=== PATIENT | female | born 1990 | race African-American/Black ===

== ENCOUNTER 2016-05-03 18:44 | Emergency (ER) | payer SELFPAY ==
--- NOTE | 2016-05-03 19:39 | ED Physician Documentation ---
General Adult - HISTORIAN Historian: patient - HPI Stated Complaint: left sided back pain Chief Complaint: General Adult Additional Information: L flank pain since 1030 today, associated with moving pans and bending over. Pain worse with deep breath, lying on right side. No meds taken po. Using icy hot patch and heat. - ROS CONST: no problems. denies: fever NEURO/PSYCH: denies: tingling, numbness - PAST HX Past History: asthma Surgeries/Procedures: , cholecystectomy, other (kidney stones, broken blood vessel) Allergies/Adverse Reactions: Allergies Allergy/AdvReac Type Severity Reaction Status Date / Time No Known Allergies Allergy Verified 05/03/16 18:59 Home Medications: Ambulatory Orders Medication Instructions Recorded Albuterol Sulfate [Proair Hfa] 8.5 gm IH DAILY 09/04/12 Cyclobenzaprine HCl [Flexeril] 10 mg PO HS #10 tablet 05/03/16 - SOCIAL HX Smoking History: cigar (occasional) - FAMILY HX Family History: No - VITAL SIGNS Vital Signs: Vital Signs Temp Pulse Resp BP Pulse Ox 99 H 16 122/91 98 05/03/16 18:54 05/03/16 18:54 05/03/16 18:54 05/03/16 18:54 - REVIEWED ASSESSMENTS Nursing Assessment Reviewed: Yes Vitals Reviewed: Yes ED Results Lab/Radiology - Orders Orders: ED Orders Category Date Time Status Ketorolac Tromethamine [Toradol] Med 05/03/16 19:37 Once 60 mg IM NOW ONE Orphenadrine Citrate [Norflex] Med 05/03/16 19:37 Once 60 mg IM NOW ONE General Adult Physical Exam - PHYSICAL EXAM GENERAL APPEARANCE: morbidly obese EENT: eye inspection normal, ENT inspection normal NECK: normal inspection, supple RESPIRATORY: no resp distress, breath sounds normal CVS: reg rate & rhythm, heart sounds normal RECTAL: deferred BACK: normal inspection, other (tender to palpation at left posterolateral lower mid thorax ) SKIN: warm/dry, normal color EXTREMITIES: no evidence of injury, no edema NEURO: CN's nml as tested, motor nml, sensation nml, other (reflexes 2+ throughout) Discharge Clincal Impression: Chest wall pain Additional Instructions: Apply heat or cold to the area several times a day. Take two Aleve with a small amount of food every 12 hours for the next seven days. Home Medications: Ambulatory Orders Albuterol Sulfate [Proair Hfa] 8.5 gm IH DAILY 09/04/12 Cyclobenzaprine HCl [Flexeril] 10 mg PO HS #10 tablet 05/03/16 Condition: Good Disposition: 01 HOME, SELF-CARE Decision to Admit: NO Decision Time: 19:45
[2016-05-03] MEDS: KETOROLAC TROMETHAMINE 60 MG/2 ML VIAL IM ONE (19:50)
[2016-05-03] MEDS: ORPHENADRINE CITRATE 60 MG/2ML IM ONE (19:52)
[2016-05-03 21:10] VITALS: BP 134/76
[2016-05-04 05:28] LABS: APPEARANCE,URINE CLOUDY (CLEAR); COLOR,URINE YELLOW (YELLOW); OCCULT BLOOD,URINE NEGATIVE (NEGATIVE); PH URINE 8.5 (5.0 - 8.0)
== END 2016-05-03 20:30 | disposition home or self-care (01) ==
LOC: ED 18:44
DX: R07.89 Other chest pain (principal)
CPT/HCPCS: J1885; J2360; 81002; 96372; 99283

== ENCOUNTER 2018-03-22 18:01 | Emergency (ER) | payer OTHER ==
[2018-03-22 19:01] LABS: BASOPHILS % 0.3 (0.0-1.5); EOSINOPHILS % 1.5 % (0.0-6.8); MEAN CORPUSCULAR HEMOGLOBIN 30.2 pg (28.0-34.0); MONOCYTES % 12.4 % (0.0-11.0); NEUTROPHILS # 3.4 # k/uL (1.4-7.7)
[2018-03-22 19:08] LABS: eGFR (Non-African) > 60
--- NOTE | 2018-03-22 19:19 | ED Physician Documentation ---
General Adult - HISTORIAN Historian: patient, spouse - HPI Stated Complaint: SOA Chief Complaint: General Adult Further Comments: yes (27 year old female patient reports complaint of dyspnea. "I can't get enough air" Patient reports using her inhaler multiple times today. Patient also complains of right upper thigh pain. Patient report difficulty with first "3 blood transfusion, busted blood vessel, low hemoglobin". Patient denies using any anticoagulation injections or oral medication during . LMP - 12/26/17; DANITA 10/02/18) - ROS CONST: no problems EYES/ENT: none CVS/RESP: none GI/: none MS/SKIN/LYMPH: leg pain (right thigh) - PAST HX Past History: asthma Surgeries/Procedures: Allergies/Adverse Reactions: Allergies Allergy/AdvReac Type Severity Reaction Status Date / Time No Known Allergies Allergy Verified 03/22/18 18:12 Home Medications: Ambulatory Orders Medication Instructions Recorded Albuterol Sulfate [Proair Hfa] 8.5 gm IH DAILY 09/04/12 - SOCIAL HX Smoking History: non-smoker - FAMILY HX Family History: No - VITAL SIGNS Vital Signs: Vital Signs Temp Pulse Resp BP Pulse Ox 100.1 F H 93 H 21 124/60 94 03/22/18 18:01 03/22/18 18:01 03/22/18 18:01 03/22/18 18:01 03/22/18 18:01 - REVIEWED ASSESSMENTS Nursing Assessment Reviewed: Yes Vitals Reviewed: Yes Progress - Progress Progress: RA sat remained 100% while in Er able to ambulate with no complaint of pain. Patient has appointment with OB doctor tomorrow at 1pm to establish care. ED Results Lab/Radiology - Lab Results Lab Results: Lab Results 03/22/18 03/22/18 18:06 18:06 WBC 5.30 K/ul K/ul (4.00-12.00) RBC 3.53 M/ul L M/ul (3.90-5.20) Hgb 10.7 g/dL L g/dL (12.0-16.0) Hct 33.3 % L % (34.5-46.5) MCV 94.0 fl fl (80.0-100.0) MCH 30.2 pg pg (28.0-34.0) MCHC 32.0 g/dL g/dL (30.0-36.0) RDW 13.1 % % (11.3-14.3) Plt Count 309 K/mm3 K/mm3 (130-400) Neut % (Auto) 64.5 % % (39.0-79.0) Lymph % (Auto) 21.3 % % (16.0-50.0) Ripley % (Auto) 12.4 % H % (0.0-11.0) Eos % (Auto) 1.5 % % (0.0-6.8) Baso % (Auto) 0.3 (0.0-1.5) Neut # (Auto) 3.4 # k/uL # k/uL (1.4-7.7) Lymph # (Auto) 1.1 # k/uL # k/uL (0.6-4.0) Ripley # (Auto) 0.7 # k/uL # k/uL (0.0-0.9) Eos # (Auto) 0.1 # k/uL # k/uL (0.0-0.6) Baso # (Auto) 0.0 # k/uL # k/uL (0.0-0.5) Sodium 132 mmol/L L mmol/L (136-145) Potassium 3.6 mmol/L mmol/L (3.5-5.1) Chloride 103 mmol/L mmol/L (98-107) Carbon Dioxide 24 mmol/L mmol/L (22-30) BUN 5 mg/dL L mg/dL (7-17) Creatinine 0.50 mg/dL L mg/dL (0.52-1.04) Estimated Creat Clear 474 Est GFR ( Amer) > 60 (60 - ) Est GFR (Non-Af Amer) > 60 (60 - ) Glucose 90 mg/dL mg/dL (74-106) Calcium 8.8 mg/dL mg/dL (8.4-10.2) Total Bilirubin 0.3 mg/dL mg/dL (0.2-1.3) AST 25 U/L U/L (15-46) ALT 19 U/L U/L (13-69) Alkaline Phosphatase 48 U/L U/L (38-126) Total Protein 7.0 g/dL g/dL (6.3-8.2) Albumin 4.8 g/dL g/dL (3.5-5.0) - Orders Orders: ED Orders Category Date Time Status CBC/PLATELET/DIFF Stat Lab 03/22/18 18:06 Completed CMP Stat Lab 03/22/18 18:06 Completed PT-INR Stat Lab 03/22/18 18:06 Received PTT Stat Lab 03/22/18 18:06 Received General Adult Physical Exam - PHYSICAL EXAM GENERAL APPEARANCE: anxious EENT: eye inspection normal, ADY RESPIRATORY: no resp distress, chest non-tender, breath sounds normal, other (RA sat 100%) CVS: reg rate & rhythm, heart sounds normal, equal pulses, no murmur, no gallop, PMI nml, no JVD, no friction rub, 24 ABDOMEN: soft, no organomegaly, normal bowel sounds, no abdominal bruit, no distension, other (morbid obesity) SKIN: normal color, warm/dry, NR, INT, PAL, DR EXTREMITIES: non-tender, normal range of motion, no evidence of injury, no edema, other (right thigh area examined - no ecchymosis; no tenderness to palpation; DP 3+, PT 2+) NEURO: oriented X3, CN's nml as tested, motor nml, sensation nml, mood/affect nml Discharge Clincal Impression: Qualifiers: Weeks of gestation: 11 weeks Qualified Code(s): Z3A.11 - 11 weeks gestation of Referrals: Jimmy Pena MD [Primary Care Provider] - 2 Days Additional Instructions: Keep your appointment with your OB doctor tomorrow. Return to the Er if you are short of breath or have increased pain. Condition: Stable Disposition: 01 HOME, SELF-CARE Decision to Admit: NO Decision Time: 19:41
[2018-03-22] MEDS ORDERED: ACETAMINOPHEN 500 MG TABLET PO ONE (19:37)
[2018-03-22 23:56] LABS: APPEARANCE,URINE CLOUDY (CLEAR); COLOR,URINE YELLOW (YELLOW); OCCULT BLOOD,URINE NEGATIVE (NEGATIVE); PH URINE 8.5 (5.0 - 8.0)
[2018-03-23 03:39] VITALS: BP 116/64
== END 2018-03-22 19:55 | disposition home or self-care (01) ==
LOC: ED 18:01
DX: R06.02 Shortness of breath (principal); M79.651 Pain in right thigh; Z33.1 Pregnant state, incidental
CPT/HCPCS: 36415; 80053; 81002; 81025; 85025; 85610; 85730; 99282; 99283; S1016